=== PATIENT | male | born 1940 | race Caucasian/White ===

== ENCOUNTER → 2021-03-31 | Outpatient (CLI) | payer OTHER, MEDICARE ==
[~2021-03-31] MED LIST: ASPRIMOX 325 M325 MG PO; ATIVAN1 MG PO; CALCIUM PO; FISH OIL 1,001000 MG PO; MULTIVITAMINS PO; OSTEO BI-FLEX1 EAC1 PO; PRILOSEC 20 MG20 MG PO; PRILOSEC OTC20 MG PO; TRAZODONE HCL50 MG PO; TRETINOIN45 GM; VITAMIN D1000 UNI1 PO; ZOCOR 10 MG TAB10 MG PO
== END ==
LOC: LAB 06:14
PROVIDERS: ATTEND Student in an Organized Health Care Education/Training Program
DX: Z01.812 Encounter for preprocedural laboratory examination (principal); Z20.822 Contact with and (suspected) exposure to COVID-19

== ENCOUNTER → 2021-04-02 | Outpatient (CLI) | payer OTHER, MEDICARE ==
[~2021-04-02] VITALS: Ht 190.5 cm; Wt 104.3 kg
--- NOTE | 2021-04-02 13:48 | P ---
[facility] [place] [address] PROCEDURE REPORT Name: ADOLFO TRAVIS Room #: REG CORTEZ Art#: [id number] Admission: 04/02/21 Attend Phys: Zak Vance Discharge: Date of : 42 Report #: [id number] THIS REPORT FOR: cc: Daniel Gonzalez MD, John L. MD McElhinney, Christian C. MD ~ cc: Daniel Gonzalez MD DATE OF SERVICE: 04/02/2021 PROCEDURE PERFORMED: Colonoscopy with biopsies. HISTORY OF PRESENT ILLNESS: The patient is a 80-year-old male here for routine screening colonoscopy. Last colonoscopy, no polyps were noted. He has no family history of colon cancer. DESCRIPTION OF PROCEDURE: The risks and benefits of the procedure were explained to the patient, those risks including but not limited to bleeding, perforation and the risk of sedation. He understood these risks and gave informed consent. Sedation was given using propofol per anesthesia. Next, a digital rectal exam was initially performed, which was normal. Next, using a standard Olympus colonoscope, the scope was placed in the patient's anus and advanced under direct vision to the cecum. The overall prep was good. The cecum and ileocecal valve were normal in appearance. In the ascending colon, a 4 mm sessile polyp was noted. This was removed with cold forceps, otherwise normal. The transverse, descending and sigmoid colon were normal. The rectal mucosa was normal. On retroflexion, small nonbleeding internal hemorrhoids were noted. The scope was then withdrawn and the procedure terminated. The patient tolerated the procedure well. IMPRESSION: 1. Small colonic polyp. 2. Small internal hemorrhoids. 3. Otherwise, normal colonoscopy. RECOMMENDATIONS: Await biopsies. Thank you for allowing me to participate in his care. <ELECTRONICALLY SIGNED> By: Zak Ram MD 04/02/21 1348 1011 1115 Zak Ram MD /nt
--- NOTE | 2021-04-02 13:48 | P ---
[facility] [place] [address] PROCEDURE REPORT Name: ADOLFO TRAVIS Room #: REG MARVINElsie Cordova#: [id number] Admission: 04/02/21 Attend Phys: Zak Vance Discharge: Date of : 42 Report #: [id number] THIS REPORT FOR: cc: Daniel Gonzalez MD, John L. MD McElhinney, Christian C. MD ~ cc: Daniel Gonzalez MD DATE OF SERVICE: 04/02/2021 PROCEDURE PERFORMED: Upper endoscopy with esophageal dilation. HISTORY OF PRESENT ILLNESS: The patient is a 80-year-old male with a history of gastroesophageal reflux disease and Leonard's esophagus. Last upper endoscopy in 2014. He does report intermittent dysphagia. He takes Prilosec approximately 2-3 times per week, but is using Tums on a daily basis. Plan is for upper endoscopy. DESCRIPTION OF PROCEDURE: The risks and benefits of the procedure were explained to the patient, those risks including but not limited to bleeding, perforation and the risk of sedation. He understood these risks and gave informed consent. Sedation was given using propofol per Anesthesia. Next, using a standard Olympus upper endoscope, the scope was placed in the patient's mouth and advanced under direct vision through the esophagus, stomach and into the second portion of the duodenum. The upper and mid esophagus were normal in appearance. In the distal esophagus, a short segment of Leonard's was noted. Biopsies were obtained. No evidence of stricture. Upon entering the stomach, a small hiatal hernia was noted. Overall, the gastric mucosa was normal. The pylorus was normal and patent. The duodenal bulb, first and second portion were normal. The scope was then brought back up into the patient's stomach and a Savary guidewire was inserted through the scope as the guidewire remained in place as the scope was then withdrawn. Next, a 48-Mexican Savary dilation of the esophagus was performed without difficulty. The wire and dilator removed. The scope was reintroduced into the patient's stomach. There was no evidence of mucosal tear after dilation. The scope was then withdrawn and the procedure terminated. The patient tolerated the procedure well. IMPRESSION: 1. Short segment Leonard's esophagus. 2. Small hiatal hernia. 3. Otherwise, normal upper endoscopy. RECOMMENDATIONS: 1. Await biopsies. 2. Observe the patient post-dilation. 3. Would recommend daily PPI therapy. [address] [address] PROCEDURE REPORT Name: ADOLFO TRAVIS Room #: REG CLElsie Cordova#: [id number] Admission: 04/02/21 Attend Phys: Zak Vance Discharge: Date of : 42 Report #: [id number] Thank you for allowing me to participate in his care. <ELECTRONICALLY SIGNED> By: Zak Ram MD 04/02/21 1348 0939 1104 Zak Ram, /nt
--- NOTE | 2021-04-06 18:06 | PATH ---
[facility] [place] [address] [place] [address] PATHOLOGY RPT PROCEDURE Name: POLO TRAVIS DENIA Room #: REG CORTEZ Liu.#: [id number] Admission: 04/02/21 Date of : 42 Discharge: Report #: [id number] Path Case #: [id number] [facility] Accession Number: [id number] . 01 Material submitted: . PART A: esophagus - DISTAL ESOPHAGUS BIOPSY R/O AVILES'S. Modifiers: distal PART B: colon - ASCENDING COLON POLYP BIOPSY. Modifiers: ascending . 01 Clinical history: . EGD/COLONOSCOPY DYSPHAGIA, AVILES'S, HX POLYPS . 02 Diagnosis: A. Gastroesophageal mucosa, distal esophagus, endoscopic biopsy: - Focal specialized columnar epithelium (gastric cardia-type mucosa) with intestinal metaplasia, consistent with Aviles's metaplasia. - Negative for dysplasia. - Squamous mucosa with moderate active esophagitis. . B. Polyp, ascending colon polyp, endoscopic biopsy: - Hyperplastic polyp and a lymphoid aggregate. - Negative for dysplasia. (IUV:pit; 04/06/2021) QTP 04/06/2021 1418 Local . 02 Comment: A. The above diagnosis of Aviles's esophagus is made due to the presence of intestinal metaplasia and with the assumption that the biopsies were obtained from the columnar mucosa in the distal esophagus located at least 1 cm proximal to the top of the gastric folds as per the 2016 ACG guidelines. (IUV:pit; 04/06/2021) . 02 Electronically signed: . Molly Huang MD, Pathologist NPI- [id number] . 01 Gross description: . A. Received in formalin labeled "Polo Travis, distal esophagus BX rule out Aviles's" are multiple hatch-brown soft tissue fragments measuring in aggregate 0.9 x 0.4 x 0.1 cm. The specimen is submitted entirely in A1. . B. Received in formalin labeled "Polo Tarvis, ascending colon polyp" are multiple hatch-brown soft tissue fragments measuring in aggregate 0.6 x 0.4 x 0.1 cm. The specimen is submitted entirely in B1. ([facility]; 04/04/2021) [facility] 04/04/[address] [address] PATHOLOGY RPT PROCEDURE Name: POLO TRAVIS Room #: REG CLElsie Cordova#: [id number] Admission: 04/02/21 Date of : 42 Discharge: Report #: [id number] Path Case #: [id number] . 02 Pathologist provided ICD-10: K22.70, K20.90, K63.5 . 02 CPT . 661527, 306763 Specimen Comment: A courtesy copy of this report has been sent to [phone] Specimen Comment: [phone], Specimen Comment: Report sent to , DR MILLER / DR HORN Performed at: [address] [facility], [place] [id number] MD Ricardo Henderson MD Phone: [phone] Performed at: [address] [id number] MD Molly Huang MD Phone: [phone]
== END | disposition home or self-care (01) ==
LOC: GI 08:59
PROVIDERS: ATTEND Specialist
DX: Z12.11 Encounter for screening for malignant neoplasm of colon (principal); K63.5 Polyp of colon; K64.8 Other hemorrhoids; K22.70 Barrett's esophagus without dysplasia; K21.00 Gastro-esophageal reflux disease with esophagitis, without bleeding; R13.10 Dysphagia, unspecified; K44.9 Diaphragmatic hernia without obstruction or gangrene; Z98.890 Other specified postprocedural states; Z79.899 Other long term (current) drug therapy; Z90.49 Acquired absence of other specified parts of digestive tract; Z87.891 Personal history of nicotine dependence
CPT/HCPCS: 62110; 62900